=== PATIENT | male | born 1945 | race African-American/Black ===

== ENCOUNTER 2020-08-12 08:23 | Emergency (ER) | payer BC, OTHER ==
[~2020-08-12] VITALS: Ht 172.7 cm; Wt 63.6 kg
[~2020-08-12 08:23] MED LIST: ATEN-73 PO; HYDR-1475 PO; HYDR-3971 PO; NAPR250T4 PO; RISP2TAB45 PO
[2020-08-12] MEDS ORDERED: HYDROCODONE/ACETAMINOPHEN 5-325 MG TABLET PO ONE (08:45)
[2020-08-12] MEDS ORDERED: OLAN10TA3 PO (09:00)
[2020-08-12] MEDS ORDERED: ASPI-728 PO (09:00)
[2020-08-12 09:25] VITALS: BP 156/75
== END 2020-08-12 10:40 | disposition home or self-care (01) ==
LOC: EMS 08:25
DX: S32.039A Unspecified fracture of third lumbar vertebra, initial encounter for closed fracture (principal); I10 Essential (primary) hypertension; F20.9 Schizophrenia, unspecified; F17.210 Nicotine dependence, cigarettes, uncomplicated; Z88.0 Allergy status to penicillin; V92.09XA Drowning and submersion due to fall off unspecified watercraft, initial encounter; Y93.89 Activity, other specified; Y92.89 Other specified places as the place of occurrence of the external cause; Y99.8 Other external cause status
CPT/HCPCS: 72131

== ENCOUNTER 2021-08-07 00:48 | Emergency (ER) | payer OTHER ==
[~2021-08-07] VITALS: Ht 172.7 cm; Wt 56.8 kg
[~2021-08-07 00:48] MED LIST changes: +ASPI-1450 PO; -HYDR-1475 PO; -HYDR-3971 PO; +HYDR-4072 PO; +HYDR25TA2 PO; +NAPR-1197 PO; -NAPR250T4 PO; +OLAN10TA74 PO; -RISP2TAB45 PO
[2021-08-07] MEDS ORDERED: MECLIZINE HCL 25 MG TABLET PO ONE (01:15)
[2021-08-07] MEDS ORDERED: ONDANSETRON HCL 4 MG/2 ML VIAL IVP ONE (01:15)
[2021-08-07 01:17] LABS: GLUCOMETER DEV NAME(LOC) ERT.5; GLUCOSE,POINT OF CARE 103 MG/DL (70-110)
[2021-08-07 01:18] LABS: BASOPHILS % (AUTO) 0.7 % (0.0-2.0); EOSINOPHILS % (AUTO) 10.5 % (1.0-6.0); HEMATOCRIT 41.1 % (41-53); HEMOGLOBIN 13.4 g/dL (13.5-17.5); LYMPHOCYTES # (AUTO) 1.3 K/uL (1.0-4.8); LYMPHOCYTES % (AUTO) 28.8 % (22.0-44.0); MEAN CORPUSCULAR HEMOGLOBIN 28.8 pg (26.0-34.0); MEAN CORPUSCULAR HGB CONC 32.5 G/dL (31.0-37.0); MEAN CORPUSCULAR VOLUME 89 fL (80-100); MONOCYTES # (AUTO) 0.6 K/uL (0.1-1.0); MONOCYTES % (AUTO) 13.5 % (2.0-9.0); NEUTROPHILS # (AUTO) 2.1 K/uL (1.8-7.7); NEUTROPHILS % (AUTO) 46.5 % (40.0-70.0); PLATELET COUNT (AUTO) 228 K/uL (150-450); RED BLOOD CELL COUNT(AUTO) 4.64 MIL/uL (4.50-5.90); RED CELL DISTRIBUTION WIDTH 14.9 % (11.5-14.5)
[2021-08-07 01:25] LABS: ANION GAP 3 mmol/L (8-16); CALCIUM, TOTAL 8.8 mg/dL (8.8-10.5); CARBON DIOXIDE 33 mmol/L (22-29); CHLORIDE 104 mmol/L (98-107); CREATININE 0.48 mg/dL (0.60-1.30); GLUCOSE,RANDOM 125 mg/dL (70-110); POTASSIUM 3.8 mmol/L (3.5-5.1); SODIUM SERUM 140 mmol/L (136-145); UREA NITROGEN, BLOOD 21 mg/dL (7-18)
[2021-08-07 01:29] LABS: GLOMERULAR FILTR. RATE CALC > 60 mL/min (>60)
[2021-08-07 01:32] LABS: ALANINE AMINOTRANSFERASE 26 U/L (12-78); ALBUMIN 3.6 g/dL (3.4-5.0); ALKALINE PHOSPHATASE 80 U/L (46-116); ASPARTATE AMINOTRANSFERASE 33 U/L (15-37); BILIRUBIN,TOTAL 0.3 mg/dL (0.1-1.0); CREATINE KINASE, TOTAL ONLY 388 U/L (39-308)
[2021-08-07 01:42] LABS: B-TYPE NATRIURETIC PEPTIDE 10 pg/mL (0-100)
[2021-08-07] MEDS ORDERED: LABETALOL HCL 5 MG/ML 20 ML VIAL IVP ONE (02:00)
[2021-08-07 02:45] VITALS: BP 176/90
== END 2021-08-07 03:59 | disposition home or self-care (01) ==
LOC: EMS 00:51
DX: R42 Dizziness and giddiness (principal); H92.02 Otalgia, left ear; I10 Essential (primary) hypertension; F20.9 Schizophrenia, unspecified; F17.210 Nicotine dependence, cigarettes, uncomplicated; Z88.0 Allergy status to penicillin; Z79.82 Long term (current) use of aspirin
CPT/HCPCS: 70450; 71045; 80053; 82550; 82962; 83880; 84484; 85025; 93005; 96374; 96375; 99285; J2405; J3490; 36415-L1; 36415-TC

== ENCOUNTER 2022-01-11 11:19 | Emergency (ER) | payer MEDICARE, MEDICAID ==
[~2022-01-11] VITALS: Ht 172.7 cm; Wt 63.6 kg
[2022-01-11 11:33] VITALS: BP 180/104
== END 2022-01-11 12:01 | disposition home or self-care (01) ==
LOC: EMS 11:19
DX: L85.3 Xerosis cutis (principal); I10 Essential (primary) hypertension; F20.9 Schizophrenia, unspecified; F17.210 Nicotine dependence, cigarettes, uncomplicated; Z88.0 Allergy status to penicillin; Z79.899 Other long term (current) drug therapy
CPT/HCPCS: 82962; 99282

== ENCOUNTER 2022-12-22 09:57 | Emergency (ER) | payer MEDICARE, OTHER ==
[~2022-12-22] VITALS: Ht 172.7 cm; Wt 63.4 kg
[2022-12-22] MEDS ORDERED: ACETAMINOPHEN 325 MG TABLET PO ONE (12:15)
[2022-12-22 14:10] VITALS: BP 139/77
== END 2022-12-22 15:41 | disposition home or self-care (01) ==
LOC: EMS 09:59
DX: S83.91XA Sprain of unspecified site of right knee, initial encounter (principal); E11.9 Type 2 diabetes mellitus without complications; I10 Essential (primary) hypertension; F20.9 Schizophrenia, unspecified; F17.210 Nicotine dependence, cigarettes, uncomplicated; Z99.3 Dependence on wheelchair; Z88.0 Allergy status to penicillin; W01.0XXA Fall on same level from slipping, tripping and stumbling without subsequent striking against object, initial encounter; Y93.E1 Activity, personal bathing and showering; Y92.89 Other specified places as the place of occurrence of the external cause; Y99.8 Other external cause status
CPT/HCPCS: 70450; 72125; 99284

== ENCOUNTER 2023-01-12 12:04 | Inpatient (IN) | payer OTHER ==
[~2023-01-12] VITALS: Ht 172.7 cm; Wt 60.3 kg
[~2023-01-12 12:04] MED LIST changes: +HYDR-4870 PO; -HYDR25TA2 PO
[2023-01-12] MEDS ORDERED: FAMOTIDINE 10 MG/ML 2 ML VIAL IVP ONE (12:45)
[2023-01-12] MEDS ORDERED: DiphenhydrAMINE HCL 50 MG/ML VIAL IVP ONE (12:45)
[2023-01-12] MEDS ORDERED: SODIUM CHLORIDE 0.9% 1,000 ML IV ONE (12:45)
[2023-01-12] MEDS ORDERED: MethylPREDNISolone SOD SUCC 125 MG/2 ML VIAL IVP ONE (12:45)
[2023-01-12] MEDS ORDERED: NAPR-1025 PO (12:51)
[2023-01-12] MEDS ORDERED: HydrALAZINE HCL 20 MG/ML VIAL IVP ONE (13:30)
[2023-01-12] MEDS ORDERED: MAGNESIUM HYDROXIDE SUSPENSION 30 ML UDCUP PO PRN (14:00)
[2023-01-12] MEDS ORDERED: MORPHINE SULFATE 2 MG/ML SYRINGE IVP PRN (14:00)
[2023-01-12] MEDS ORDERED: ACETAMINOPHEN 325 MG TABLET PO PRN (14:00)
[2023-01-12] MEDS ORDERED: ONDANSETRON HCL 4 MG/2 ML VIAL IVP PRN (14:00)
[2023-01-12] MEDS ORDERED: HYDROCODONE/ACETAMINOPHEN 5-325 MG TABLET PO PRN (14:00)
[2023-01-12] MEDS ORDERED: ZOLPIDEM TARTRATE 5 MG TABLET PO PRN (14:00)
[2023-01-12] MEDS ORDERED: BISACODYL 10 MG RECTAL RECTAL SUPPOSITORY PR PRN (14:00)
[2023-01-12] MEDS: DEXAMETHASONE SOD PHOS 4 MG/ML VIAL IVP SCH (15:15)
[2023-01-12] MEDS ORDERED: LABETALOL HCL 5 MG/ML 20 ML VIAL IVP ONE (15:15)
[2023-01-12 15:16] LABS: BASOPHILS % (AUTO) 0.2 % (0.0-2.0); EOSINOPHILS % (AUTO) 7.5 % (1.0-6.0); HEMATOCRIT 45.8 % (41-53); HEMOGLOBIN 14.7 g/dL (13.5-17.5); LYMPHOCYTES # (AUTO) 0.8 K/uL (1.0-4.8); LYMPHOCYTES % (AUTO) 7.9 % (22.0-44.0); MEAN CORPUSCULAR HEMOGLOBIN 28.6 pg (26.0-34.0); MEAN CORPUSCULAR HGB CONC 32.1 G/dL (31.0-37.0); MEAN CORPUSCULAR VOLUME 89 fL (80-100); MONOCYTES # (AUTO) 0.4 K/uL (0.1-1.0); MONOCYTES % (AUTO) 4.3 % (2.0-9.0); NEUTROPHILS # (AUTO) 7.9 K/uL (1.8-7.7); NEUTROPHILS % (AUTO) 80.1 % (40.0-70.0); PLATELET COUNT (AUTO) 249 K/uL (150-450); RED BLOOD CELL COUNT(AUTO) 5.15 MIL/uL (4.50-5.90); RED CELL DISTRIBUTION WIDTH 15.3 % (11.5-14.5)
[2023-01-12] MEDS: HEPARIN SODIUM,PORCINE 5,000 UNITS/ML VIAL SQ SCH (15:16)
[2023-01-12 15:26] LABS: ANION GAP 7 mmol/L (8-16); CALCIUM, TOTAL 9.3 mg/dL (8.8-10.5); CARBON DIOXIDE 30 mmol/L (22-29); CHLORIDE 102 mmol/L (98-107); CREATININE 0.45 mg/dL (0.60-1.30); GLOMERULAR FILTR. RATE CALC > 60 mL/min (>60); GLUCOSE,RANDOM 122 mg/dL (70-110); POTASSIUM 3.5 mmol/L (3.5-5.1); SODIUM SERUM 139 mmol/L (136-145); UREA NITROGEN, BLOOD 12 mg/dL (7-18)
[2023-01-12 15:31] LABS: ALANINE AMINOTRANSFERASE 20 U/L (12-78); ALBUMIN 3.4 g/dL (3.4-5.0); ALKALINE PHOSPHATASE 80 U/L (46-116); ASPARTATE AMINOTRANSFERASE 31 U/L (15-37); BILIRUBIN,TOTAL 0.4 mg/dL (0.1-1.0); TOTAL PROTEIN, SERUM 8.2 g/dL (6.4-8.2)
[2023-01-12] MEDS ORDERED: ATEN-72 PO (20:31)
[2023-01-12] MEDS ORDERED: FAMOTIDINE 20 MG TABLET PO SCH (21:00)
[2023-01-12] MEDS ORDERED: DiphenhydrAMINE HCL 25 MG CAPSULE PO SCH (21:00)
[2023-01-12] MEDS: DOCUSATE SODIUM 100 MG CAPSULE PO SCH (21:53)
[2023-01-12] MEDS: FAMOTIDINE 10 MG/ML 2 ML VIAL IVP SCH (21:54)
[2023-01-12] MEDS: DiphenhydrAMINE HCL 50 MG/ML VIAL IVP SCH (21:54)
[2023-01-13] MEDS: HEPARIN SODIUM,PORCINE 5,000 UNITS/ML VIAL SQ SCH ×3 (00:57→17:31)
[2023-01-13] MEDS: DEXAMETHASONE SOD PHOS 4 MG/ML VIAL IVP SCH ×3 (00:57→17:30)
[2023-01-13] MEDS: HydrALAZINE HCL 20 MG/ML VIAL IVP PRN ×2 (02:33→07:48)
[2023-01-13 09:45] VITALS: BP 166/91
[2023-01-13] MEDS: HYDROCHLOROTHIAZIDE 25 MG TABLET PO SCH (10:39)
[2023-01-13] MEDS: PANTOPRAZOLE SODIUM 40 MG DR TABLET PO SCH (10:39)
[2023-01-13] MEDS: DiphenhydrAMINE HCL 50 MG/ML VIAL IVP SCH ×2 (10:39→20:52)
[2023-01-13] MEDS: DOCUSATE SODIUM 100 MG CAPSULE PO SCH ×2 (10:40→20:52)
[2023-01-13] MEDS: ASPIRIN 81 MG CHEWABLE TABLET PO SCH (10:40)
[2023-01-13 12:00] VITALS: BP 149/82
[2023-01-13] MEDS: FAMOTIDINE 10 MG/ML 2 ML VIAL IVP SCH ×2 (12:41→21:00)
[2023-01-13] MEDS: ATENOLOL 50 MG TABLET PO SCH (12:41)
[2023-01-13 16:10] VITALS: BP 149/82
[2023-01-13 20:00] VITALS: BP 153/80
[2023-01-13] MEDS ORDERED: AmLODIPine BESYLATE 5 MG TABLET PO ONE (20:45)
[2023-01-14] MEDS: HydrALAZINE HCL 20 MG/ML VIAL IVP PRN ×2 (00:13→04:22)
[2023-01-14] MEDS: HEPARIN SODIUM,PORCINE 5,000 UNITS/ML VIAL SQ SCH ×3 (00:14→16:36)
[2023-01-14] MEDS: DEXAMETHASONE SOD PHOS 4 MG/ML VIAL IVP SCH ×3 (00:14→16:31)
[2023-01-14 02:44] VITALS: BP 184/102
[2023-01-14 04:18] VITALS: BP 161/89
[2023-01-14 08:00] VITALS: BP 150/70
[2023-01-14] MEDS: DiphenhydrAMINE HCL 50 MG/ML VIAL IVP SCH (08:32)
[2023-01-14] MEDS: ASPIRIN 81 MG CHEWABLE TABLET PO SCH (08:33)
[2023-01-14] MEDS: HYDROCHLOROTHIAZIDE 25 MG TABLET PO SCH (08:33)
[2023-01-14] MEDS: ATENOLOL 50 MG TABLET PO SCH (08:34)
[2023-01-14] MEDS: FAMOTIDINE 10 MG/ML 2 ML VIAL IVP SCH (08:34)
[2023-01-14] MEDS: DOCUSATE SODIUM 100 MG CAPSULE PO SCH (08:34)
[2023-01-14] MEDS: PANTOPRAZOLE SODIUM 40 MG DR TABLET PO SCH (08:34)
[2023-01-14] MEDS ORDERED: AmLODIPine BESYLATE 5 MG TABLET PO SCH (09:00)
[2023-01-14 11:55] VITALS: BP 149/79
[2023-01-14 16:05] VITALS: BP 93/61
[2023-01-14 16:37] VITALS: BP 143/76
[2023-01-14] MEDS ORDERED: DIPH25CA85 PO (16:47)
[2023-01-14] MEDS ORDERED: PRED-554 PO (16:47)
[2023-01-14] MEDS ORDERED: AMLO-257 PO (16:47)
[2023-01-14] MEDS ORDERED: FAMO20 PO (16:47)
== END 2023-01-14 17:46 | disposition home or self-care (01) | DRG 915 ==
LOC: EMS 12:18 → UNDOADMIN 18:18 → AHU 18:18 → 5N 01-13 08:57
PROVIDERS: ADMIT Internal Medicine; ATTEND Internal Medicine
DX: T78.3XXA Angioneurotic edema, initial encounter (principal); E43 Unspecified severe protein-calorie malnutrition; F17.200 Nicotine dependence, unspecified, uncomplicated; I10 Essential (primary) hypertension; E11.9 Type 2 diabetes mellitus without complications; F20.9 Schizophrenia, unspecified; I44.7 Left bundle-branch block, unspecified; L25.0 Unspecified contact dermatitis due to cosmetics; Z20.822 Contact with and (suspected) exposure to COVID-19; Y92.89 Other specified places as the place of occurrence of the external cause; Z99.3 Dependence on wheelchair; Z88.0 Allergy status to penicillin; Z68.20 Body mass index [BMI] 20.0-20.9, adult; Z79.84 Long term (current) use of oral hypoglycemic drugs
CPT/HCPCS: 80053; 84484; 85025; 93005; 99291; G0378; J0360; J1100; J1200; J1644; J2930; J3490; J7030